=== PATIENT | female | born 1990 | race Caucasian/White ===

== ENCOUNTER → 2017-08-05 12:52 | Outpatient (CLI) | payer OTHER, SELFPAY ==
[2017-08-05 14:47] LABS: Erythrocyte Sedimentation Rate 6 mm/hr (0-20)
[2017-08-05 14:53] LABS: Absolute Lymphocyte Count 2.14 X10^3/ul (0.83-4.51); Absolute Neutrophil Count 3.3 X10^3/uL (2.0-7.7); Basophil# 0.02 X10^3/uL; Basophil% 0.3 % (0-1); Eosinophil# 0.34 X10^3/uL; Eosinophils% 5.4 % (0-5); Hematocrit 39.2 % (37-47); Hemoglobin 13.2 g/dl (12.0-15.0); Lymphocyte # 2.14 X10^3/ul (4.0); Lymphocyte % 33.7 % (19-41); Mean Corp Hgb Conc 33.7 g/gl (32-36); Mean Corpuscular Hgb 28.9 pg (27.0-32.0); Mean Corpuscular Volume 85.8 fL (81-99); Mean Platelet Vol. 9.7 fl (6.2-12.0); Monocyte# 0.52 X10^3/uL; Monocyte% 8.2 % (0-10); Neutrophil # 3.32 X10^3/uL (2.7-7.7); Neutrophil % 52.2 % (47-70); Platelet Count 255 K/mm3 (150-450); RBC Distribution Width CV 12.4 % (11.6-14.6); RBC Distribution Width SD 38.2 fl (35.1-43.9); Red Blood Count 4.57 M/mm3 (4.2-5.4); White Blood Count 6.4 K/mm3 (4.4-11.0)
[2017-08-05 14:57] LABS: ALB/GLOB Ratio 0.9 RATIO (0.9-2.4); AST(SGOT) 22 U/L (15-37); Alanine Aminotransfer ALT/SGPT 21 U/L (13-56); Albumin, Serum 3.5 g/dL (3.2-5.0); Alkaline Phosphatase 51 U/L (45-117); Anion Gap 8 (5-15); BUN 12 mg/dL (7-18); BUN/Creat Ratio 15.3 RATIO (10-20); Calcium,Total 8.6 mg/dL (8.5-10.1); Chloride 105 mmol/L (98-107); Creatinine, Serum 0.78 mg/dL (0.55-1.02); EST Glomerular Filtration Rate 95 mL/min (>60); Est Glom Filt Rate - Afr Amer 115 mL/min (>60); Globulin 3.9 g/dL (2.2-4.2); Glucose 74 mg/dL (74-106); Potassium 3.6 mmol/L (3.5-5.1); Protein, Total 7.4 g/dL (6.4-8.2); Sodium Level 140 mmol/L (136-145); Thyroid Stim Hormone (TSH) 1.03 uIU/mL (0.358-3.74)
[2017-08-05 14:59] LABS: POSITIVE COUNT NO; POSITIVE DIFFERENTIAL NO; POSITIVE MORPHOLOGY NO
[2017-08-10 07:06] LABS: Alternaria alternata <0.10 kU/L (Class 0); Aspergillus fumigatus <0.10 kU/L (Class 0); Bahia Grass <0.10 kU/L (Class 0); Beef <0.10 kU/L (Class 0); Bermuda Grass <0.10 kU/L (Class 0); Bluegrass, Kentucky <0.10 kU/L (Class 0); Cat Hair/Dander, Standard <0.10 kU/L (Class 0); Cedar, Mountain <0.10 kU/L (Class 0); Cladosporium herbarum <0.10 kU/L (Class 0); Cockroach, American <0.10 kU/L (Class 0); Corn <0.10 kU/L (Class 0); D farinae Mite <0.10 kU/L (Class 0); D pteronyssinus <0.10 kU/L (Class 0); Dog Epithelia <0.10 kU/L (Class 0); Egg, Whole <0.10 kU/L (Class 0); Elm, American White <0.10 kU/L (Class 0); Hazelnut Tree <0.10 kU/L (Class 0); Hickory, White <0.10 kU/L (Class 0); Johnson Grass <0.10 kU/L (Class 0); Maple/Box Elder <0.10 kU/L (Class 0); Milk (Cow) <0.10 kU/L (Class 0); Mucor racemosus <0.10 kU/L (Class 0); Mugwort <0.10 kU/L (Class 0); Mulberry, White <0.10 kU/L (Class 0); Nettle <0.10 kU/L (Class 0); Oak, White <0.10 kU/L (Class 0); Peanut <0.10 kU/L (Class 0); Penicillium chrysogen <0.10 kU/L (Class 0); Pigweed, Rough <0.10 kU/L (Class 0); Plantain, English <0.10 kU/L (Class 0); Pork <0.10 kU/L (Class 0); Ragweed, Short/Common <0.10 kU/L (Class 0); Sheep Sorrel(Dock) <0.10 kU/L (Class 0); Soybean <0.10 kU/L (Class 0); Stemphylium herbarum <0.10 kU/L (Class 0); Sweet Gum <0.10 kU/L (Class 0); Sycamore, American <0.10 kU/L (Class 0); Wheat <0.10 kU/L (Class 0)
[2017-08-10 11:28] LABS: Chocolate <0.10 kU/L (Class 0)
== END ==
PROVIDERS: Family Provider Family Medicine; PCP Family Medicine; Visit Provider Family Medicine
DX: R21 Rash and other nonspecific skin eruption (principal)
CPT/HCPCS: 36415; 80053; 84443; 85025; 85652; 86003; 86005

== ENCOUNTER 2022-01-19 18:50 | Inpatient (IN) | payer BC, SELFPAY ==
[2022-01-19 19:41] VITALS: BMI 43.0
[2022-01-19 19:54] LABS: Absolute Lymphocyte Count 2.03 X10^3/uL (0.83-4.51); Absolute Neutrophil Count 7.8 X10^3/uL (2.0-7.7); Basophil# 0.03 X10^3/uL; Basophil% 0.3 % (0-1); Eosinophil# 0.04 X10^3/uL; Eosinophils% 0.4 % (0-5); Hematocrit 35.7 % (37-47); Hemoglobin 12.1 g/dL (12.0-15.0); Lymphocyte # 2.03 X10^3/ul (0.83-4.51); Lymphocyte % 18.7 % (19-41); Mean Corp Hgb Conc 33.9 g/dL (32-36); Mean Corpuscular Hgb 28.4 pg (27.0-32.0); Mean Corpuscular Volume 83.8 fL (81-99); Mean Platelet Vol. 9.6 fl (6.2-12.0); Monocyte# 0.93 X10^3/uL; Monocyte% 8.6 % (0-10); NRBC Flagged by Analyzer 0 % (0-5); Neutrophil # 7.78 X10^3/uL (2.7-7.7); Neutrophil % 71.4 % (47-70); Platelet Count 246 K/mm3 (150-450); RBC Distribution Width CV 13.8 % (11.6-14.6); RBC Distribution Width SD 41.6 fl (35.1-43.9); Red Blood Count 4.26 M/mm3 (4.2-5.4); White Blood Count 10.9 K/mm3 (4.4-11.0)
--- NOTE | 2022-01-19 20:08 | PCM.HP.OB ---
HPI - General General Date of Admission: 01/19/22 HPI Narrative AKI CAUSEY, is a 31 F who presents for induction. Maternal Data Information Final SUSAN: 01/26/22 Gestational age: 39 weeks [facility] Medical History (Updated 01/19/22 @ 20:[address] Shelbie Haddad MD) 39 weeks gestation of Obesity Tinea corporis Home Medications Vitamin 1 tab PO/SL DAILY 01/19/22 [History Last Taken Unknown] aspirin 81 mg capsule 81 mg PO DAILY 01/19/22 [History Last Taken Unknown] Allergy/AdvReac Type Severity Reaction Status Date / Time No Known Allergies Allergy Verified 01/19/22 19:42 Family History Father Cancer leukemia (Bone Marrow Transplant) Surgical History History of wisdom tooth extraction, class II edentulism Social History Smoking Status: Never smoker alcohol intake: never substance use type: does not use caffeine: Yes what type of physical activity do you participate in: none seatbelt use: always do you feel safe at home: Yes 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 a PT History 0 Elective abortions Hx Para Spontaneous abortions Hx # Term Pregnancies Ectopic pregnancies Hx # Pregnancies Multiple births # of living children NST FHR Rate Baby A Baseline: 135 Variability:: Moderate Accelerations:: 15 x 15 Uterine Activity:: Occasional Vital Signs Vital Signs Vital Signs: Weight Weight: 242 lb 8.136 oz Body Mass Index (BMI) 43.0 Physical Exam Const alert and oriented x3 Chest inspection of chest normal GI soft to palpation, non-tender and non-distended Inspection: gravid external exam normal Narrative: cvx - 3/70/-2 Labs Labs Labs: Hct 35.7 % (37-47) L Hgb 12.1 g/dL (12.0-15.0) Assessment & Plan (1) Obesity: COMMENT: 31yo @ 39 weeks PLAN: Admit to L&D Induction for maternal obesity - will start pitocin GBS negative EFW - less than 4500g, patient with adequate pelvis Pain - epidural as desired Routine care (2) 39 weeks gestation of :
[2022-01-19 20:27] VITALS: TEMP 36.7
[2022-01-19 20:28] VITALS: BP 131/81; PULSE 99
[2022-01-19] MEDS: Mag Hydrox/Al Hydrox/Simeth 30 ML UDC PO (21:05)
[2022-01-19 23:45] VITALS: BP 119/75; PULSE 100
[2022-01-19 23:46] VITALS: PULSE 93; TEMP 35.9; O2SAT 98
[2022-01-20] VITALS (55 sets, daily range): BP systolic 99–130; BP diastolic 54–83; PULSE 75–102; RESP 15–16; TEMP 35.9–37.2; O2SAT 99–100
[2022-01-20] MEDS: Acetaminophen 500 MG Tablet PO (00:37)
[2022-01-20] MEDS: Lactated Ringers 1,000 ML 50 ML IV (02:24)
[2022-01-20] MEDS: 0.9% Saline Lock 10 ML Syringe IV ×2 (02:24→13:19)
[2022-01-20] MEDS: Oxytocin 30 units/NS 500 ml 30 UNITS/500 ML IV.SOLN IV (02:26)
[2022-01-20] MEDS: Mag Hydrox/Al Hydrox/Simeth 30 ML UDC PO ×2 (03:26→08:35)
[2022-01-20] MEDS: fentaNYL 100 MCG/2 ML Ampul IV (04:07)
[2022-01-20] MEDS: LACTATED RINGERS 500 ML 999 ML IV (04:45)
[2022-01-20] MEDS: fentaNYL-bupivacaine (epidural) 100 ML BAG EPIDURAL (06:00)
[2022-01-20] MEDS: Lactated Ringers 1,000 ML 200 ML IV (09:52)
[2022-01-20] MEDS: Oxytocin 30 units/NS 500 ml 30 UNITS/500 ML IV.SOLN 334 UNITS IV (10:28)
--- NOTE | 2022-01-20 10:47 | OP.PCM_ITS ---
Assessment & Plan (1) (spontaneous vaginal delivery): Maternal Data Information Final SUSAN: 01/23/22 Gestational age: 39 4/7 Vaginal Delivery Maternal Presentation Maternal Presentation: Active Labor Operative Information Date of Procedure: 01/20/22 Pre-Operative Diagnosis: labor Post-Operative Diagnosis: same Surgery / Procedure Performed: Spontaneous Vaginal Delivery Type of Anesthesia: Epidural Special Medications: none Drain: Molina to straight drain Estimated Blood Loss: 300 Time of Delivery: 10:26 Findings Description of Procedure: A vigorous male infant was delivered CRISTIAN over a second-degree perineal laceration. A loose nuchal cord ?1 was easily reduced. The remainder the infa nt was delivered with maternal pushing and gentle traction only in less than 15 seconds. The Pitocin infusion was initiated for active management of the third stage. The cord was clamped and cut after 1 minute. The infant was attended to by the waiting nursing staff. The placenta was delivered spontaneously and intact. The cervix and vagina were intact. The second-degree perineal laceration was repaired with 2-0 Vicryl suture in a running standard fashion. Sponge and needle counts were correct. A vaginal sweep was completed by me. Presentation: CRISTIAN Amniotic Membrane Rupture Type: Spontaneous Amniotic Fluid Description: Clear Placental Delivery Description: Spontaneous Placenta Disposition: [facility] Cord Vessel Description: 3 Vessels Cord Entanglement: Around neck x 1, loose Nuchal Cord Compression: Without compression Infant A Gender: Male (Lucus) (1 minute): 8 (5 minute): 9 Delayed Cord Clamping: Yes Post Vaginal Delivery Medications Given After Delivery: IV Pitocin Episiotomy Description: None Laceration: 2nd degree Complication Complications: None Admit VTE Documentation VTE Present on Admission: No VTE Mechan Device Prophylaxis: SCD's VTE Pharm Prophylaxis Ordered: No Reason Prophylaxis Not Ordered: Procedure Not Indicated
[2022-01-20] MEDS: Acetaminophen 500 MG Tablet 1000 MG PO (17:19)
[2022-01-21] VITALS (8 sets, daily range): BP systolic 120–131; BP diastolic 68–81; PULSE 68–91; RESP 15–16; TEMP 36.1–36.7; O2SAT 98–99
[2022-01-21] MEDS: Acetaminophen 500 MG Tablet 1000 MG PO (02:21)
[2022-01-21 05:53] LABS: Hematocrit 33.1 % (37-47); Hemoglobin 10.8 g/dL (12.0-15.0); Mean Corp Hgb Conc 32.6 g/dL (32-36); Mean Corpuscular Hgb 27.8 pg (27.0-32.0); Mean Corpuscular Volume 85.3 fL (81-99); Mean Platelet Vol. 9.3 fl (6.2-12.0); Platelet Count 223 K/mm3 (150-450); RBC Distribution Width CV 13.9 % (11.6-14.6); Red Blood Count 3.88 M/mm3 (4.2-5.4); White Blood Count 13.7 K/mm3 (4.4-11.0)
--- NOTE | 2022-01-21 07:48 | PCM.PN.BLA ---
Progress Note Patient seen at bedside. Feeling good. Denies any pain. with some support. Ambulating and voiding without difficulty. Lochia decreasing. Desires discharge home later today. Physical Exam Const alert and no apparent distress General Appearance: cooperative and comfortable Exam Limitations: no limitations HEENT normocephalic Eyes General Eye: normal appearance of both eyes Neck full ROM General: normal visual inspection Chest Chest: symmetrical chest wall rise Resp normal respiratory effort and normal air movement Effort and Inspection: symmetric chest movement Auscultation: clear to auscultation bilaterally Cardio regular rate and regular rhythm GI normal to inspection, nondistended, normoactive bowel sounds Back/Spine normal ROM Extremity full ROM and no calf tenderness General Extremity: normal exam except as noted Skin no rashes or lesions noted Neuro CN's II-XII intact bilaterally Psych mental status grossly normal Assessment & Plan Assessment/Plan (1) (spontaneous vaginal delivery): (2) Care and examination of lactating mother: (3) Laceration, obstetrical, second degree: PLAN: Plan PPD 1 support Routine care D/C home with follow up in office
--- NOTE | 2022-01-21 07:49 | DCINST_ITS ---
Discharge Instructions Diet Discharge Diet: No restrictions Activity Discharge Activity: Return to Normal Activity May resume sexual activity in: 4-6 weeks Weight Bearing Status: Weight bearing as tolerated Dressing / Incision Call your doctor if you observe: Fever of 101 or Higher, Inability to have a bowel movement, Using more than 1 pad per hour, Shortness of breath, Dizziness, Chest pain, Calf discomfort and Uncontrolled pain Follow Up Care Please Follow Up With: Jacqueline Ivory MD When: 2 weeks then again 4 weeks for Test Results: Test results from this visit will be discussed in further detail at your follow- up appointment, if applicable. Discharge Plan Admission Admit Date/Time: 01/19/22 18:50 Primary Reason for Your Visit: Labor and Delivery Attending Provider: Jacqueline Ivory Primary Care Provider: Care Physician,Kristine Primary Discharge Orders/Prescriptions Prescriptions: Continued Vitamin 1 tab PO/SL DAILY Discontinued aspirin 81 mg Capsule 81 mg PO DAILY Referrals / Follow Up: Care Physician,No Primary [Primary Care Provider] - Disposition Disposition (needs filled in before D/C Order can be placed): Home, Self Care
[2022-01-21] MEDS: Ibuprofen 600 MG Tablet PO (08:07)
--- NOTE | 2022-01-21 13:16 | NURSING ---
Reviewed and agreed with Kelle RN charting.
== END 2022-01-21 14:20 | disposition home or self-care (01) | DRG 807 ==
PROVIDERS: Obstetrics & Gynecology; Admitting Provider Obstetrics & Gynecology; Visit Provider Obstetrics & Gynecology
DX: O70.1 Second degree perineal laceration during delivery (principal); Z37.0 Single live birth; E66.9 Obesity, unspecified; O69.81X0 Labor and delivery complicated by cord around neck, without compression, not applicable or unspecified; Z3A.39 39 weeks gestation of pregnancy; O99.214 Obesity complicating childbirth
CPT/HCPCS: 59025; 59050; 85025; 85027; 86850; 86900; 86901; 87426; 99218; J7120; A4216; G0378